=== PATIENT | male | born 1935 | race Caucasian/White ===

== ENCOUNTER 2017-02-06 09:40 | Outpatient (CLI) | payer MEDICARE, OTHER ==
[2017-02-06 12:11] LABS: Hemoglobin A1c 5.1 % (4.0-6.0)
[2017-02-06 13:06] LABS: ALT (SGPT) 24 U/L (8-55); AST (SGOT) 21 U/L (5-34); Albumin 4.1 g/dL (3.4-4.8); Alkaline Phosphatase 91 U/L (40-150); Anion Gap 19 mmol/L (10-20); BUN (Urea Nitrogen) 23 mg/dL (8.4-25.7); Bilirubin, Direct 0.2 mg/dL (0.1-0.3); Bilirubin, Total 0.7 mg/dL (0.2-1.2); Calc. Creatinine Clearance 0 mL/min (70-130); Calcium 9.8 mg/dL (7.8-10.44); Carbon Dioxide 24 mmol/L (23-31); Cardiac Risk 4.3 (Less than 4.5); Chloride 104 mmol/L (98-107); Cholesterol 187 mg/dl (< 200 Desired); Estimated GFR-MDRD 81; Glucose 86 mg/dL (83-110); HDL Cholesterol 43 mg/dL (>60 Neg Risk); LDL Cholesterol, Calculated 98 mg/dL; Potassium 4.6 mmol/L (3.5-5.1); Protein, Total 7.2 g/dL (5.8-8.1); Sodium 142 mmol/L (136-145); Triglycerides 228 mg/dL (Less than 150)
[2017-02-06 13:37] LABS: #Basophils 0.1 thou/uL (0.0-0.2); #Eosinphils 0.2 thou/uL (0.0-0.7); #Lymphocytes 2.1 thou/uL (1.20-3.40); #Monocytes 0.6 thou/uL (0.11-0.59); #Neutrophils 3.3 thou/uL (1.40-6.50); %Basophils 1.1 % (0.0-1.0); %Eosinophils 3.7 % (0.0-10.0); %Lymphocytes 32.9 % (21.0-51.0); %Monocytes 9.2 % (0.0-10.0); %Neutrophils 53.1 % (42.0-75.0); Hemoglobin 14.9 g/dL (14.0-18.0); Mean Corpuscular HGB CONC 31.8 g/dL (32.0-36.0); Mean Corpuscular Hemoglobin 28.9 pg (27.0-31.0); Mean Corpuscular Volume 90.8 fl (80.0-94.0); Mean Platelet Volume 9.5 fL (7.4-10.4); Platelet Count 129 thou/uL (130-400); RBC Distribution Width 12.4 % (11.5-14.5); Red Blood Cell (RBC) Count 5.16 mill/uL (4.70-6.10); White Blood Cell (WBC) Count 6.3 thou/uL (4.8-10.8)
== END 2017-02-06 09:41 | disposition home or self-care (01) ==
LOC: NAVSJIPCSP 09:40
PROVIDERS: ATTEND Family Medicine
DX: E78.5 Hyperlipidemia, unspecified (principal); I10 Essential (primary) hypertension; S51.812A Laceration without foreign body of left forearm, initial encounter; I73.9 Peripheral vascular disease, unspecified; E88.81 Metabolic syndrome and other insulin resistance; G62.9 Polyneuropathy, unspecified; M54.5 Low back pain; M19.90 Unspecified osteoarthritis, unspecified site; Z79.899 Other long term (current) drug therapy
CPT/HCPCS: 36415; 80048; 80061; 80076; 83036; 84443; 85025

== ENCOUNTER 2017-07-26 09:24 | Emergency (ER) | payer MEDICARE, OTHER ==
[2017-07-26 10:50] LABS: Bilirubin Negative (Negative); Blood, Urine Trace (Negative); Clarity Clear (Clear); Glucose, Urine (Dipstick) Negative (Negative); Leukocyte Negative (Negative); Nitrite Negative (Negative); Protein, Urine (Dipstick) 30 mg/dL (Neg-Trace); Specific Gravity, Urine 1.015 (1.005-1.030); Urobilinogen 0.2 mg/dL (0.2-1.0)
[2017-07-26 11:01] LABS: Bacteria/HPF Rare-Few HPF (None Seen); Other Microscopic Description NO; RBC/HPF 0-3 HPF (0-3); Squamous Epithelial None Seen HPF (0-3); WBC/HPF None Seen HPF (0-3)
[2017-07-26] MEDS ORDERED: Ondansetron ODT 4 MG TAB ONE (11:09)
[2017-07-26 11:20] LABS: #Lymphocytes 1.5 thou/uL (1.20-3.40); #Monocytes 0.7 thou/uL (0.11-0.59); #Neutrophils 9.7 thou/uL (1.40-6.50); %Basophils 0.3 % (0.0-1.0); %Eosinophils 0.1 % (0.0-10.0); %Lymphocytes 12.3 % (21.0-51.0); %Neutrophils 81.3 % (42.0-75.0); Hemoglobin 13.1 g/dL (14.0-18.0); Mean Corpuscular Hemoglobin 29.1 pg (27.0-31.0); Mean Platelet Volume 10.8 fL (7.4-10.4); Platelet Count 184 thou/uL (130-400); RBC Distribution Width 11.9 % (11.5-14.5); White Blood Cell (WBC) Count 11.9 thou/uL (4.8-10.8)
[2017-07-26 11:25] LABS: ALT (SGPT) 23 U/L (8-55); Albumin 3.6 g/dL (3.4-4.8); Alkaline Phosphatase 66 U/L (40-150); Anion Gap 17 mmol/L (10-20); BUN (Urea Nitrogen) 49 mg/dL (8.4-25.7); Bilirubin, Total 0.4 mg/dL (0.2-1.2); Calc. Creatinine Clearance 0 mL/min (70-130); Calcium 9.3 mg/dL (7.8-10.44); Carbon Dioxide 20 mmol/L (23-31); Chloride 110 mmol/L (98-107); Estimated GFR-MDRD Greater than 90; Globulin 3.4 g/dL (2.4-3.5); Glucose 130 mg/dL (83-110); Lipase 14 U/L (8-78); Sodium 142 mmol/L (136-145)
[2017-07-26 11:27] LABS: CKMB 1.2 ng/mL (0-6.6); Troponin I 0.027 ng/mL (< 0.028)
[2017-07-26 11:38] LABS: AST (SGOT) 16 U/L (5-34)
[2017-07-26 11:48] LABS: PTT 28.4 SEC (22.9-36.1); Prothrombin Time 13.2 SEC (12.0-14.7)
[2017-07-26 11:54] LABS: CK (CPK) 52 U/L (30-200); Potassium 5.1 mmol/L (3.5-5.1)
[2017-07-26] MEDS ORDERED: Sodium Chloride 0.9% 1,000 ML ONE (12:07)
[2017-07-26] MEDS ORDERED: Sodium Chloride 0.9% 100 ML ONE (12:13)
[2017-07-26] MEDS ORDERED: Pantoprazole 40 MG VIAL ONE (12:14)
[2017-07-26] MEDS ORDERED: Benzocaine 20% Spray 60 ML CAN ONE (12:28)
--- NOTE | 2017-07-26 13:15 | RAD ---
CHEST 1 VIEW: HISTORY: Emergency exam. COMPARISON: Radiograph from 03/24/16. FINDINGS: Lungs are within focal airspace consolidation, pneumothorax, or effusion. Enteric tube appears to be in place, although the tip is not well seen. Lungs are hypoinflated. Chronic interstitial markings. IMPRESSION: 1. The enteric tube tip is not well seen. 2. Chronic interstitial changes. 3. Nodularity of the right mid lung may be the sequelae of lung hyperoinflation. Repeat 2 views of the chest recommended in full inspiration. POS: [facility]
== END 2017-07-26 13:10 | disposition short-term general hospital (02) ==
LOC: NAV ERS 09:24
DX: K92.2 Gastrointestinal hemorrhage, unspecified (principal); I10 Essential (primary) hypertension; E78.5 Hyperlipidemia, unspecified; G62.9 Polyneuropathy, unspecified; I73.89 Other specified peripheral vascular diseases; Z79.899 Other long term (current) drug therapy; Z87.891 Personal history of nicotine dependence
CPT/HCPCS: 36415; 71045; 80053; 81003; 81015; 82274; 82553; 83690; 84484; 85025; 85610; 85730; 93005; 96365; C9113; J7050; Q0162

== ENCOUNTER 2018-09-16 15:58 | Outpatient (CLI) | payer MEDICARE, OTHER ==
--- NOTE | 2018-09-16 17:38 | ULT ---
RIGHT LOWER EXTREMITY VENOUS DOPPLER WITH SPECTRAL ANALYSIS AND COLOR FLOW EVALUATION: DATE: 09/16/2018. HISTORY: Right thigh contusion 10 days ago. Large knot with redness just above the level of the ankle. FINDINGS: Muniz scale, color flow, Doppler evaluation, and spectral analysis of the right lower extremity venous structures is performed with 2D imaging. The right lower extremity, common femoral, superficial fem oral, popliteal, posterior tibial, most proximal greater saphenous and profunda femoral veins are kimmie ged. There is normal lumen compressibility, flow, and augmentation in the visualized deep venous structure s of the right lower extremity. There is a predominantly anechoic cystic-appearing structure with multiple linear internal echoes whi ch may represent septations within the subcutaneous soft tissues at the medial aspect of the right an kle. This area measures 6.9 cm x 1.5 cm x 3.9 cm. Color flow evaluation does not demonstrate flow w ithin this structure. This may represent a hematoma given the patient's recent injury. Infection ca nnot be excluded based on sonographic evaluation. IMPRESSION: 1. No evidence of a deep vein thrombosis involving the visualized deep venous structures right lower extremity. 2. Anechoic collection with internal septations and internal debris in the subcutaneous soft tissues medial right ankle. Findings may be related to hematoma given recent injury, but infection related to abscess collection could not be excluded based on sonographic evaluation POS: [facility]
== END 2018-09-16 15:59 | disposition home or self-care (01) ==
LOC: NAV ULT 15:58
PROVIDERS: ATTEND Family Medicine
DX: S70.10XA Contusion of unspecified thigh, initial encounter (principal)

== ENCOUNTER 2020-06-20 07:15 | Emergency (ER) | payer MEDICARE, OTHER ==
[2020-06-20 07:54] LABS: #Basophils 0.1 thou/uL (0.0-0.2); #Lymphocytes 1.4 thou/uL (1.20-3.40); #Monocytes 0.5 thou/uL (0.11-0.59); #Neutrophils 6.8 thou/uL (1.40-6.50); %Basophils 0.6 % (0.0-1.0); %Eosinophils 0.4 % (0.0-10.0); %Lymphocytes 16.1 % (21.0-51.0); %Neutrophils 76.9 % (42.0-75.0); Hemoglobin 17.1 g/dL (14.0-18.0); Mean Corpuscular HGB CONC 31.7 g/dL (32.0-36.0); Mean Corpuscular Hemoglobin 29.8 pg (27.0-31.0); Mean Corpuscular Volume 93.9 fL (78.0-98.0); Mean Platelet Volume 10.5 fL (7.4-10.4); Platelet Count 180 thou/uL (130-400); RBC Distribution Width 13.1 % (11.5-14.5); Red Blood Cell (RBC) Count 5.75 mill/uL (4.70-6.10); White Blood Cell (WBC) Count 8.9 thou/uL (4.8-10.8)
[2020-06-20 08:01] LABS: ALT (SGPT) 28 U/L (8-55); AST (SGOT) 26 U/L (5-34); Albumin 4.2 g/dL (3.4-4.8); Alkaline Phosphatase 98 U/L (40-110); Anion Gap 18 mmol/L (10-20); BUN (Urea Nitrogen) 18 mg/dL (8.4-25.7); Bilirubin, Total 0.5 mg/dL (0.2-1.2); Calc. Creatinine Clearance 0 mL/min (70-130); Calcium 9.7 mg/dL (7.8-10.44); Carbon Dioxide 20 mmol/L (23-31); Chloride 107 mmol/L (98-107); Estimated GFR-MDRD 90; Globulin 3.6 g/dL (2.4-3.5); Glucose 116 mg/dL (83-110); Lipase 22 U/L (8-78); Potassium 4.9 mmol/L (3.5-5.1); Protein, Total 7.8 g/dL (5.8-8.1); Sodium 140 mmol/L (136-145)
[2020-06-20] MEDS ORDERED: Sodium Chloride 0.9% 1,000 ML ONE (08:22)
[2020-06-20] MEDS ORDERED: Benzocaine 20% Spray 60 ML CAN ONE (08:28)
--- NOTE | 2020-06-20 08:30 | CT ---
CT ABDOMEN AND PELVIS WITHOUT CONTRAST: Date: 06/20/2020 COMPARISON: 03/25/2016. HISTORY: Abdominal pain since last night. TECHNIQUE: Multiple contiguous axial images were obtained in a CT of the abdomen and pelvis without contrast. Sa gittal and coronal reformats were performed. FINDINGS: The patient is status post cholecystectomy. There is a stable left adrenal mass measuring 1.8 cm in s ize. There is a tiny nonobstructing calcification in the right kidney which measures approximately 1. 0 mm in size. No focal liver lesions are seen. The left kidney, right adrenal gland, spleen, and panc reas are unremarkable, although evaluation is limited without IV contrast. There are mildly dilated l oops of proximal small bowel measuring up to 3.6 cm in size. The colon and distal small bowel loops a re decompressed. There is an apparent transition point in the mid to left upper quadrant of the abdom en. The patient appears to be status post hernia repair. Degenerative and postsurgical changes are seen i n the spine. Atherosclerotic calcifications are seen in the aorta. No abdominal or pelvic lymphadenop athy are seen. A calcified granuloma is seen in the right lung base. There is bilateral gynecomastia. IMPRESSION: 1. Findings are concerning for partial or complete small bowel obstruction. 2. Nonobstructing right renal calculus. 3. Stable left adrenal mass likely represents an adenoma. POS: [facility]
== END 2020-06-20 09:33 | disposition short-term general hospital (02) ==
LOC: NAV ERS 07:15
DX: K56.609 Unspecified intestinal obstruction, unspecified as to partial versus complete obstruction (principal); I10 Essential (primary) hypertension; K21.9 Gastro-esophageal reflux disease without esophagitis; E78.5 Hyperlipidemia, unspecified; E78.00 Pure hypercholesterolemia, unspecified; I73.9 Peripheral vascular disease, unspecified; Z87.891 Personal history of nicotine dependence; Z79.899 Other long term (current) drug therapy
CPT/HCPCS: 74176; 80053; 83690; 85025; J7050

== ENCOUNTER 2022-06-07 07:39 | Emergency (ER) | payer MEDICARE, OTHER ==
[2022-06-07 08:23] LABS: Bilirubin Negative (Negative); Blood, Urine Negative (Negative); Clarity Clear (Clear); Glucose, Urine (Dipstick) Negative (Negative); Ketone, Urine Negative (Negative); Leukocyte Negative (Negative); Nitrite Negative (Negative); Protein, Urine (Dipstick) 100 mg/dL (Neg-Trace); Specific Gravity, Urine 1.025 (1.005-1.030); Urobilinogen 0.2 mg/dL (Less than 2); pH, Urine 7.5 (5.0-9.0)
[2022-06-07 08:35] LABS: RBC/HPF None Seen HPF (0-3)
[2022-06-07 08:36] LABS: Bacteria/HPF None Seen HPF (None Seen); Squamous Epithelial 0-3 HPF (0-3); WBC/HPF None Seen HPF (0-3)
[2022-06-07 08:58] LABS: #Eosinphils 0.1 thou/uL (0.0-0.7); #Lymphocytes 1.3 thou/uL (1.20-3.40); #Monocytes 0.5 thou/uL (0.11-0.59); #Neutrophils 8.4 thou/uL (1.40-6.50); %Basophils 0.4 % (0.0-1.0); %Eosinophils 0.6 % (0.0-10.0); %Lymphocytes 12.2 % (21.0-51.0); %Neutrophils 81.8 % (42.0-75.0); Hemoglobin 15.8 g/dL (14.0-18.0); Mean Corpuscular HGB CONC 33.2 g/dL (32.0-36.0); Mean Corpuscular Hemoglobin 30.6 pg (27.0-31.0); Mean Corpuscular Volume 92.2 fl (78.0-98.0); Platelet Count 151 10x3/uL (130-400); RBC Distribution Width 12.5 % (11.5-14.5); Red Blood Cell (RBC) Count 5.16 mill/uL (4.70-6.10); White Blood Cell (WBC) Count 10.3 10x3/uL (4.8-10.8)
[2022-06-07 09:26] LABS: ALT (SGPT) 22 U/L (8-55); AST (SGOT) 20 U/L (5-34); Albumin 4.4 g/dL (3.4-4.8); Alkaline Phosphatase 78 U/L (40-110); Anion Gap 15 mmol/L (10-20); BUN (Urea Nitrogen) 14 mg/dL (8.4-25.7); Bilirubin, Total 0.7 mg/dL (0.2-1.2); Calc. Creatinine Clearance 0 mL/min (70-130); Carbon Dioxide 24 mmol/L (23-31); Chloride 104 mmol/L (98-107); Estimated GFR 84; Globulin 3.4 g/dL (2.4-3.5); Glucose 104 mg/dL (83-110); Lipase 22 U/L (8-78); Potassium 4.2 mmol/L (3.5-5.1); Protein, Total 7.8 g/dL (5.8-8.1); Sodium 139 mmol/L (136-145)
[2022-06-07] MEDS ORDERED: Pantoprazole 40 MG VIAL ONE (09:50)
[2022-06-07] MEDS ORDERED: Fentanyl 100 MCG/2 ML VIAL ONE ×2 (10:23→11:54)
[2022-06-07] MEDS ORDERED: Dextrose 5 %-0.45 % NaCl 1,000 ML ONE (10:23)
[2022-06-07 10:38] LABS: SARS-CoV-2 NAA Rapid Test Not Detected (NotDetected)
== END 2022-06-07 14:52 | disposition short-term general hospital (02) ==
LOC: NAV ERS 07:39
DX: K56.609 Unspecified intestinal obstruction, unspecified as to partial versus complete obstruction (principal); I10 Essential (primary) hypertension; E78.5 Hyperlipidemia, unspecified; Z20.822 Contact with and (suspected) exposure to COVID-19
CPT/HCPCS: 71046; 74176; 80053; 81003; 81015; 83605; 83690; 83880; 84484; 85025; 93005; 94760; 96374; 96375; 96376; C9113; J3010; J7042; U0002